=== PATIENT | male | born 1990 | race American Indian/Alaskan Native ===

== ENCOUNTER 2017-04-08 21:27 | Emergency (ER) | payer OTHER ==
[2017-04-09] MEDS ORDERED: TYLENOL PO ONE (03:07)
[2017-04-09] MEDS ORDERED: TYLENOL ONE (03:07)
[2017-04-09] MEDS ORDERED: BACTRIM DS PO ONE (06:02)
[2017-04-09] MEDS ORDERED: VALTREX PO ONE (06:09)
--- NOTE | 2017-04-09 06:18 | Emergency Department Report ---
Abscess Boil HPI - HPI Chief Complaint: Rectal Pain Stated Complaint: ANAL INFECTION Time Seen by Provider: 04/09/17 05:15 Duration: 1 Week Location: Perianal Severity: Mild History: Yes Pain, No Fever, No Purulent Drainage (Yellow drainage at home), No Numbness, No Foreign Body, No Previous History, No Insect Bite HPI: 26 y.o. male presents with painful bump inside rectum x 5 days. Mom put cream on it for 3 days with minimal improvement. States it drained yellow discharge a couple days ago but the pain remains 10/10. It is painful to walk or sit. Patient denies injury to area. He remember shaving buttocks a few days ago, which he does on a regular basis without complications. Home Medications: Previous Rx's Medication Instructions Recorded Last Taken Type Sulfamethoxazole/Trimethoprim 1 each PO BID 10 Days #20 tablet 04/09/17 Unknown Rx [Bactrim DS TAB] Valacyclovir HCl [Valtrex] 1,000 mg PO BID 10 Days #20 tablet 04/09/17 Unknown Rx traMADol [Ultram 50 MG tab] 50 mg PO Q6HR PRN #20 tablet 04/09/17 Unknown Rx Allergies/Adverse Reactions: Allergies Allergy/AdvReac Type Severity Reaction Status Date / Time No Known Allergies Allergy Verified 04/09/17 03:06 ED Review of Systems ROS: Stated complaint: ANAL INFECTION Other details as noted in HPI Constitutional: denies: chills, fever Respiratory: denies: cough, shortness of breath, wheezing Cardiovascular: denies: chest pain, palpitations Genitourinary: denies: urgency, dysuria Skin: as per HPI, other (painful bump to rectum) Neurological: denies: headache, weakness, paresthesias ED Past Medical Hx - Past Medical History Previous Medical History?: No - Surgical History Past Surgical History?: No - Social History Smoking Status: Current Some Day Smoker Substance Use Type: None - Medications Home Medications: Home Medications Medication Instructions Recorded Confirmed Last Taken Type Sulfamethoxazole/Trimethoprim 1 each PO BID 10 Days #20 tablet 04/09/17 Unknown Rx [Bactrim DS TAB] Valacyclovir HCl [Valtrex] 1,000 mg PO BID 10 Days #20 tablet 04/09/17 Unknown Rx traMADol [Ultram 50 MG tab] 50 mg PO Q6HR PRN #20 tablet 04/09/17 Unknown Rx ED Abscess Boil Physical Exam - Exam General: Vital signs noted. No distress. Alert and acting appropriately. Size: 1 cm Exam: Yes Tenderness, Yes Surrounding Cellulites/Erythema, Yes Normal Neurologic Exam, Yes Normal Circulation, No Fluctuance, No Lymphangitis, No Crepitation, No Heart Murmur Exam: 1 cm crusted blister, left of anus, painful to palpation, erythematous surrounding skin ED Course Vital Signs 04/08/17 04/09/17 21:57 04:19 Temperature 98.2 F 99.5 F Pulse Rate 119 H 107 H Respiratory 20 20 Rate Blood Pressure 138/78 124/72 O2 Sat by Pulse 97 99 Oximetry Critical care attestation.: If time is entered above; I have spent that time in minutes in the direct care of this critically ill patient, excluding procedure time. ED Disposition Clinical Impression: Abscess of anal or rectal region, Herpes exposure Disposition: TO HOME OR SELFCARE Is pt being admited?: No Does the pt Need Aspirin: No Condition: Stable Instructions: Genital Herpes Simplex (ED), Anorectal Abscess and Anal Fistula ( ED) Additional Instructions: Follow up with Primary Care Provider in 5-7 days. Return to ER if fever, discharge, and severe pain after 3 days of treatment. Call or come by ER in 3-5 days for lab results. Prescriptions: Sulfamethoxazole/Trimethoprim [Bactrim DS TAB] 1 each PO BID 10 Days #20 tablet traMADol [Ultram 50 MG tab] 50 mg PO Q6HR PRN #20 tablet PRN Reason: Pain Valacyclovir HCl [Valtrex] 1,000 mg PO BID 10 Days #20 tablet Referrals: PRIMARY CARE [Primary Care Provider] - 3-5 Days [facility] [Outside] - 3-5 Days [facility] [Outside] - 3-5 Days [facility] [Outside] - 3-5 Days Time of Disposition: 06:25 Print Language: SLOVENIAN
[2017-04-09] MEDS ORDERED: ULTRAM PO ONE (07:10)
[2017-04-09] MEDS ORDERED: ULTRAM ONE (07:12)
[2017-04-09 07:18] VITALS: BP 157/104
== END 2017-04-09 07:16 | disposition home or self-care (01) ==
LOC: ED 21:27
DX: K61.1 Rectal abscess (principal); F17.200 Nicotine dependence, unspecified, uncomplicated
CPT/HCPCS: 36415; 87076; 87116; 87186; 87255; 99282

== ENCOUNTER 2018-01-10 00:21 | Emergency (ER) | payer SELFPAY ==
[2018-01-10] MEDS ORDERED: NACL 0.9% 1000 ML 1,000 ML IV ONE (00:58)
[2018-01-10] MEDS ORDERED: TYLENOL PO ONE (00:59)
[2018-01-10] MEDS ORDERED: ZOFRAN ODT PO ONE (00:59)
[2018-01-10 01:50] LABS: Basophils # (Auto) 0.1 K/mm3 (0.0-0.1); Basophils % (Auto) 0.6 % (0.0-1.8); Eosinophils # (Auto) 0.5 K/mm3 (0.0-0.4); Eosinophils % (Auto) 4.1 % (0.0-4.3); Hematocrit 42.1 % (35.5-45.6); Hemoglobin 14.1 gm/dl (11.8-15.2); Lymphocytes # (Auto) 1.4 K/mm3 (1.2-5.4); Lymphocytes % (Auto) 11.7 % (13.4-35.0); Mean Corpuscular HGB Conc 34 % (32-34); Mean Corpuscular Hemoglobin 30 pg (28-32); Mean Corpuscular Volume 90 fl (84-94); Monocytes # (Auto) 0.5 K/mm3 (0.0-0.8); Monocytes % (Auto) 3.8 % (0.0-7.3); Platelet Count 260 K/mm3 (140-440); Red Blood Count 4.67 M/mm3 (3.65-5.03); Red Cell Distribution Width 13.8 % (13.2-15.2)
[2018-01-10 02:16] LABS: Alanine Aminotransferase 21 units/L (7-56); Albumin 4.6 g/dL (3.9-5); BUN/Creatinine Ratio 8; Blood Urea Nitrogen 8 mg/dL (9-20); Calcium 9.7 mg/dL (8.4-10.2); Hemolysis Index 56; Lipase 15 units/L (13-60)
[2018-01-10 03:57] LABS: Bilirubin,Urine NEG (Negative); Blood,Urine NEG (Negative); Color,Urine Yellow (Yellow); Mucus,Urine 1+ /HPF
[2018-01-10] MEDS ORDERED: MORPHINE IV ONE (04:24)
[2018-01-10] MEDS ORDERED: ZOFRAN IV ONE (04:24)
--- NOTE | 2018-01-10 05:46 | Cat Scan Report ---
FINAL REPORT EXAM: CT ABDOMEN PELVIS WO CON HISTORY: Right Flank Pain TECHNIQUE: Routine axial imaging was obtained of the abdomen and pelvis without oral or IV contrast. Sagittal and coronal reconstructions were reviewed. FINDINGS: The lung bases do not show infiltrates or effusions. There is a small hiatal hernia. The liver, gallbladder, biliary tree, pancreas, spleen, and adrenal glands appear normal. The kidneys reveal mild right-sided hydronephrosis secondary to a partially obstructing 2.6 mm stone in the right UVJ. There is a punctate nonobstructing calcification lower pole the right kidney. The abdominal aorta is normal in caliber. The bowel loops are normal in caliber and course. There is a small umbilical hernia containing omental fat. The appendix is not enlarged. In the pelvis there are few uncomplicated sigmoid diverticula. The prostate gland and bladder appear normal. The skeletal structures otherwise appear well maintained. IMPRESSION: Mild right-sided hydronephrosis secondary to a partially obstructing 2.6 mm stone in the distal right ureter. Nonobstructing punctate calcification lower pole right kidney. Normal appendix. Uncomplicated sigmoid diverticula.
[2018-01-10] MEDS ORDERED: TORADOL IV ONE (06:05)
[2018-01-10] MEDS ORDERED: TORADOL ONE (06:09)
[2018-01-10] MEDS ORDERED: NORCO 5/325 PO ONE (07:39)
--- NOTE | 2018-01-10 07:46 | Emergency Department Report ---
ED Abdominal Pain HPI - General Chief Complaint: Abdominal Pain Stated Complaint: N/V Time Seen by Provider: 01/10/18 07:00 Source: patient Mode of arrival: Ambulatory Limitations: No Limitations - History of Present Illness Initial Comments: 27-year-old male with no known past medical history presents to the hospital where complains of sudden onset of right-sided flank pain about 10 PM last night. Pain severe and rated 10/10 in intensity. Constant without aggravating or alleviating factors. Positive associated restlessness, nausea, and vomiting. Patient denies dysuria, fever, diarrhea, hematuria, or history of kidney stones. Patient received morphine, Toradol, Tylenol, and Zofran prior to my evaluation with significant improvement in symptoms. Severity scale (0 -10): 10 - Related Data Previous Rx's Medication Instructions Recorded Last Taken Type Sulfamethoxazole/Trimethoprim 1 each PO BID 10 Days #20 tablet 04/09/17 Unknown Rx [Bactrim DS TAB] Valacyclovir HCl [Valtrex] 1,000 mg PO BID 10 Days #20 tablet 04/09/17 Unknown Rx traMADol [Ultram 50 MG tab] 50 mg PO Q6HR PRN #20 tablet 04/09/17 Unknown Rx HYDROcodone/APAP 5-325 [[place] 1 each PO Q6HR PRN #20 tablet 01/10/18 Unknown Rx 5/325] Ibuprofen [Motrin] 800 mg PO Q8HR PRN #30 tablet 01/10/18 Unknown Rx Ondansetron [Zofran Odt] 4 mg PO Q8HR PRN #20 tab.rapdis 01/10/18 Unknown Rx Tamsulosin [Flomax] 0.4 mg PO QDAY #7 cap 01/10/18 Unknown Rx Allergies Allergy/AdvReac Type Severity Reaction Status Date / Time No Known Allergies Allergy Verified 04/09/17 03:06 ED Review of Systems ROS: Stated complaint: N/V Other details as noted in HPI Comment: All other systems reviewed and negative ED Past Medical Hx - Past Medical History Previous Medical History?: No - Surgical History Past Surgical History?: No - Social History Smoking Status: Never Smoker Substance Use Type: None - Medications Home Medications: Home Medications Medication Instructions Recorded Confirmed Last Taken Type Sulfamethoxazole/Trimethoprim 1 each PO BID 10 Days #20 tablet 04/09/17 Unknown Rx [Bactrim DS TAB] Valacyclovir HCl [Valtrex] 1,000 mg PO BID 10 Days #20 tablet 04/09/17 Unknown Rx traMADol [Ultram 50 MG tab] 50 mg PO Q6HR PRN #20 tablet 04/09/17 Unknown Rx HYDROcodone/APAP 5-325 [[place] 1 each PO Q6HR PRN #20 tablet 01/10/18 Unknown Rx 5/325] Ibuprofen [Motrin] 800 mg PO Q8HR PRN #30 tablet 01/10/18 Unknown Rx Ondansetron [Zofran Odt] 4 mg PO Q8HR PRN #20 tab.rapdis 01/10/18 Unknown Rx Tamsulosin [Flomax] 0.4 mg PO QDAY #7 cap 01/10/18 Unknown Rx ED Physical Exam - General Limitations: No Limitations - Other Other exam information: General: No limitations, patient is alert in no acute distress Head exam: Atraumatic, normocephalic Eyes exam: Normal appearance, nonicteric sclera ENT: Moist mucous membrane Neck exam: Normal inspection, full range of motion, no meningismus nontender Respiratory exam: Clear to auscultation bilateral, no wheezes, rales, crackles Cardiovascular: Normal rate and rhythm, normal heart sounds Abdomen: Soft, nondistended, and nontender, with normal bowel sounds, no rebound, or guarding Extremity: Full range of motion normal inspection no deformity Back: Normal Inspection, full range of motion, no tenderness Neurologic: Alert, oriented x3, cranial nerves intact, no motor or sensory deficit Psychiatric: normal affect, normal mood Skin: Warm, dry, intact ED Course Vital Signs 01/10/18 01/10/18 01/10/18 00:30 00:56 02:03 Temperature 98.3 F 98.3 F Pulse Rate 104 H 98 H Respiratory 18 18 16 Rate Blood Pressure 136/63 136/63 Blood Pressure [Left] O2 Sat by Pulse 98 99 Oximetry 01/10/18 01/10/18 01/10/18 03:13 04:33 05:03 Temperature 98.7 F Pulse Rate 81 Respiratory 18 18 18 Rate Blood Pressure Blood Pressure 141/86 [Left] O2 Sat by Pulse 99 Oximetry 01/10/18 01/10/18 01/10/18 05:35 06:00 06:32 Temperature Pulse Rate 86 87 Respiratory 18 18 18 Rate Blood Pressure Blood Pressure 127/97 128/57 [Left] O2 Sat by Pulse 100 100 Oximetry - Reevaluation(s) Reevaluation #1: 01/10/18 07:40 [place] provided prior to discharge for extended pain relief ED Medical Decision Making - Lab Data Result diagrams: 01/10/18 01:37 01/10/18 01:37 Lab Results 01/10/18 01/10/18 01/10/18 Range/Units 01:37 01:37 03:43 WBC 12.2 H (4.5-11.0) K/mm3 RBC 4.67 (3.65-5.03) M/mm3 Hgb 14.1 (11.8-15.2) gm/dl Hct 42.1 (35.5-45.6) % MCV 90 (84-94) fl MCH 30 (28-32) pg MCHC 34 (32-34) % RDW 13.8 (13.2-15.2) % Plt Count 260 (140-440) K/mm3 Lymph % (Auto) 11.7 L (13.4-35.0) % [place] % (Auto) 3.8 (0.0-7.3) % Eos % (Auto) 4.1 (0.0-4.3) % Baso % (Auto) 0.6 (0.0-1.8) % Lymph # 1.4 (1.2-5.4) K/mm3 [place] # 0.5 (0.0-0.8) K/mm3 Eos # 0.5 H (0.0-0.4) K/mm3 Baso # 0.1 (0.0-0.1) K/mm3 Seg Neutrophils % 79.8 H (40.0-70.0) % Seg Neutrophils # 9.8 H (1.8-7.7) K/mm3 Sodium 140 (137-145) mmol/L Potassium 4.0 (3.6-5.0) mmol/L Chloride 100.9 (98-107) mmol/L Carbon Dioxide 27 (22-30) mmol/L Anion Gap 16 mmol/L BUN 8 L (9-20) mg/dL Creatinine 1.0 (0.8-1.5) mg/dL Estimated GFR > 60 ml/min BUN/Creatinine Ratio 8 % Glucose 138 H (75-100) mg/dL Calcium 9.7 (8.4-10.2) mg/dL Total Bilirubin 0.50 (0.1-1.2) mg/dL AST 25 (5-40) units/L ALT 21 (7-56) units/L Alkaline Phosphatase 102 (35-129) units/L Total Protein 8.2 (6.3-8.2) g/dL Albumin 4.6 (3.9-5) g/dL Albumin/Globulin Ratio 1.3 % Lipase 15 (13-60) units/L Urine Color Yellow (Yellow) Urine Turbidity Clear (Clear) Urine pH 8.0 H (5.0-7.0) Ur Specific Orange 1.025 (1.003-1.030) Urine Protein 100 mg/dl (Negative) mg/dL Urine Glucose (UA) Neg (Negative) mg/dL Urine Ketones Neg (Negative) mg/dL Urine Blood Neg (Negative) Urine Nitrite Neg (Negative) Urine Bilirubin Neg (Negative) Urine Urobilinogen 2.0 (<2.0) mg/dL Ur Leukocyte Esterase Neg (Negative) Urine WBC (Auto) 1.0 (0.0-6.0) /HPF Urine RBC (Auto) 12.0 (0.0-6.0) /HPF Urine Mucus 1+ /HPF - Radiology Data Radiology results: report reviewed FINAL REPORT EXAM: CT ABDOMEN PELVIS WO CON HISTORY: Right Flank Pain TECHNIQUE : Routine axial imaging was obtained of the abdomen and pelvis without oral or IV contrast. Sagittal and coronal reconstructions were reviewed. FINDINGS: The lung bases do not show infiltrates or effusions. There is a small hiatal hernia. The liver, gallbladder, biliary tree, pancreas, spleen, and adrenal glands appear normal. The kidneys reveal mild right-sided hydronephrosis secondary to a partially obstructing 2.6 mm stone in the right UVJ. There is a punctate nonobstructing calcification lower pole the right kidney. The abdominal aorta is normal in caliber. The bowel loops are normal in caliber and course. There is a small umbilical hernia containing omental fat. The appendix is not enlarged. In the pelvis there are few uncomplicated sigmoid diverticula. The prostate gland and bladder appear normal. The skeletal structures otherwise appear well maintained. IMPRESSION: Mild right-sided hydronephrosis secondary to a partially obstructing 2.6 mm stone in the distal right ureter. Nonobstructing punctate calcification lower pole right kidney. Normal appendix. Uncomplicated sigmoid diverticula. - Medical Decision Making Patient presenting with right colic found by CT. Stone is less than 5 mm so should pass spontaneously. No signs of infection or renal failure. Pain improve ED treatment. Will be discharged home with urology follow-up and meds. - Differential Diagnosis renal colic, UTI, appendicitis, torsion, hernia Critical Care Time: No Critical care attestation.: If time is entered above; I have spent that time in minutes in the direct care of this critically ill patient, excluding procedure time. ED Disposition Clinical Impression: Renal colic on right side Disposition: DC- TO HOME OR SELFCARE Is pt being admited?: No Does the pt Need Aspirin: No Condition: Stable Instructions: Renal Colic (ED), Kidney Stones (ED) Additional Instructions: Take the medication as prescribed. Follow up with the urologist. Return if symptoms worsen as indicated by your discharge instructions Prescriptions: HYDROcodone/APAP 5-325 [[place] 5/325] 1 each PO Q6HR PRN #20 tablet PRN Reason: Pain Ibuprofen [Motrin] 800 mg PO Q8HR PRN #30 tablet PRN Reason: Pain, Moderate (4-6) Ondansetron [Zofran Odt] 4 mg PO Q8HR PRN #20 tab.rapdis PRN Reason: Nausea And Vomiting Tamsulosin [Flomax] 0.4 mg PO QDAY #7 cap Referrals: DELL DUMONT MD [Staff Physician] - 3-5 Days (Urologist) Time of Disposition: 07:47
[2018-01-10 08:09] VITALS: BP 104/70
== END 2018-01-10 08:09 | disposition home or self-care (01) ==
LOC: ED 00:21
DX: N20.0 Calculus of kidney (principal)
CPT/HCPCS: 36415; 74176; 80053; 81001; 83690; 85025; 96374; 96375; 99284; J1885; J2270; J2405; Q0162

== ENCOUNTER 2019-01-14 11:40 | Inpatient (IN) | payer SELFPAY ==
--- NOTE | 2019-01-14 11:44 | Emergency Department Report ---
Blank Doc - Documentation Documentation: 28-year-old male that presents with rectal pain with hx of hemorrhoids. This initial assessment/diagnostic orders/clinical plan/treatment(s) is/are subject to change based on patient's health status, clinical progression and re- assessment by fellow clinical providers in the ED. Further treatment and workup at subsequent clinical providers discretion. Patient/guardians urged not to elope from the ED as their condition may be serious if not clinically assessed and managed. Initial orders include: 1- Patient sent to [facility] for further evaluation and treatment
[2019-01-14] MEDS ORDERED: SODIUM CHLORIDE 0.9% 1000 ML 1,000 ML IV ONE (12:36)
[2019-01-14] MEDS ORDERED: MORPHINE 4 MG/1 ML INJ IV ONE (12:36)
[2019-01-14] MEDS ORDERED: ONDANSETRON 4 MG/2 ML INJ IV ONE (12:36)
[2019-01-14 13:31] LABS: Alanine Aminotransferase 18 units/L (7-56); Albumin 4.2 g/dL (3.9-5); BUN/Creatinine Ratio 9; Blood Urea Nitrogen 7 mg/dL (9-20); Calcium 9.3 mg/dL (8.4-10.2); Hemolysis Index 3
[2019-01-14 14:13] LABS: Basophils # (Auto) 0.1 K/mm3 (0.0-0.1); Basophils % (Auto) 0.4 % (0.0-1.8); Eosinophils # (Auto) 0.1 K/mm3 (0.0-0.4); Eosinophils % (Auto) 0.8 % (0.0-4.3); Hematocrit 41.2 % (35.5-45.6); Lymphocytes # (Auto) 1.7 K/mm3 (1.2-5.4); Lymphocytes % (Auto) 13.8 % (13.4-35.0); Mean Corpuscular HGB Conc 34 % (32-34); Mean Corpuscular Volume 92 fl (84-94); Monocytes % (Auto) 7.6 % (0.0-7.3); Platelet Count 308 K/mm3 (140-440); Red Blood Count 4.46 M/mm3 (3.65-5.03)
[2019-01-14 14:25] LABS: INR 1.25 (0.87-1.13)
[2019-01-14] MEDS ORDERED: PIPERACIL/TAZOBACTA 4.5/NS 100 4.5 GM/100 ML VIAL IV ONE (14:50)
[2019-01-14] MEDS ORDERED: metroNIDAZOLE/NS 500 MG/100 ML 500 MG/100 ML BAG IV ONE (14:50)
--- NOTE | 2019-01-14 15:29 | Cat Scan Report ---
CT ABDOMEN AND PELVIS WITH CONTRAST INDICATION: Abdominal Pain. TECHNIQUE: Axial CT images were obtained through the abdomen and pelvis after 100 cc Omnipaque [address] scans at this location are performed using CT dose reduction for ALARA by means of automated exposure control. COMPARISON: CT abdomen pelvis 01/10/2018 FINDINGS: LOWER CHEST: No significant abnormality. LIVER: No significant abnormality. GALLBLADDER: No significant abnormality. BILE DUCTS: No significant abnormality. PANCREAS: No significant abnormality. SPLEEN: No significant abnormality. ADRENALS: No significant abnormality. RIGHT KIDNEY and URETER: No significant abnormality. LEFT KIDNEY and URETER: No significant abnormality. STOMACH and SMALL BOWEL: No significant abnormality. COLON: No significant abnormality. APPENDIX: Normal. PERITONEUM: No free fluid. No free air. No fluid collection. LYMPH NODES: No significant adenopathy. AORTA and ARTERIES: No significant abnormality. IVC and VEINS: No significant abnormality. URINARY BLADDER: No significant abnormality. REPRODUCTIVE ORGANS: No significant abnormality. ADDITIONAL FINDINGS: None. SKELETAL SYSTEM: No significant abnormality. IMPRESSION: 1. No significant abnormality. Signer Name: Ru Toro MD Signed: 01/14/2019 3:25 PM Workstation Name: [id number]
--- NOTE | 2019-01-14 15:56 | Emergency Department Report ---
ED Abdominal Pain HPI - General Chief Complaint: Rectal Pain Stated Complaint: HEMORROIDS Time Seen by Provider: 01/14/19 11:43 Source: patient Mode of arrival: Ambulatory Limitations: No Limitations - History of Present Illness Initial Comments: Patient complained of rectal pain which has been ongoing for the past 2 days. He denies any trauma to the rectum. MD Complaint: other (Rectal pain) -: Sudden, days(s) (2) Radiation: none Migration to: no migration Severity: moderate Severity scale (0 -10): 4 Quality: sharp Consistency: constant Improves With: nothing Worsens With: nothing Associated Symptoms: denies other symptoms - Related Data Previous Rx's Medication Instructions Recorded Last Taken Type Sulfamethoxazole/Trimethoprim 1 each PO BID 10 Days #20 tablet 04/09/17 Unknown Rx [Bactrim DS TAB] Valacyclovir HCl [Valtrex] 1,000 mg PO BID 10 Days #20 tablet 04/09/17 Unknown Rx traMADol [Ultram 50 MG tab] 50 mg PO Q6HR PRN #20 tablet 04/09/17 Unknown Rx HYDROcodone/APAP 5-325 [[place] 1 each PO Q6HR PRN #20 tablet 01/10/18 Unknown Rx 5/325] Ibuprofen [Motrin] 800 mg PO Q8HR PRN #30 tablet 01/10/18 Unknown Rx Ondansetron [Zofran Odt] 4 mg PO Q8HR PRN #20 tab.rapdis 01/10/18 Unknown Rx Tamsulosin [Flomax] 0.4 mg PO QDAY #7 cap 01/10/18 Unknown Rx Allergies Allergy/AdvReac Type Severity Reaction Status Date / Time No Known Allergies Allergy Verified 04/09/17 03:06 ED Review of Systems ROS: Stated complaint: HEMORROIDS Other details as noted in HPI Comment: All other systems reviewed and negative Constitutional: denies: chills, fever Eyes: denies: eye pain, eye discharge, vision change ENT: denies: ear pain, throat pain Respiratory: denies: cough, shortness of breath, wheezing Cardiovascular: denies: chest pain, palpitations Endocrine: no symptoms reported Gastrointestinal: other (Rectal pain). denies: abdominal pain, nausea, diarrhea Genitourinary: denies: urgency, dysuria Musculoskeletal: denies: back pain, joint swelling, arthralgia Skin: denies: rash, lesions Neurological: denies: headache, weakness, paresthesias Psychiatric: denies: anxiety, depression Hematological/Lymphatic: denies: easy bleeding, easy bruising ED Past Medical Hx - Past Medical History Additional medical history: hemorrhoids - Surgical History Past Surgical History?: No - Social History Smoking Status: Current Every Day Smoker Substance Use Type: Marijuana - Medications Home Medications: Home Medications Medication Instructions Recorded Confirmed Last Taken Type Sulfamethoxazole/Trimethoprim 1 each PO BID 10 Days #20 tablet 04/09/17 Unknown Rx [Bactrim DS TAB] Valacyclovir HCl [Valtrex] 1,000 mg PO BID 10 Days #20 tablet 04/09/17 Unknown Rx traMADol [Ultram 50 MG tab] 50 mg PO Q6HR PRN #20 tablet 04/09/17 Unknown Rx HYDROcodone/APAP 5-325 [[place] 1 each PO Q6HR PRN #20 tablet 01/10/18 Unknown Rx 5/325] Ibuprofen [Motrin] 800 mg PO Q8HR PRN #30 tablet 01/10/18 Unknown Rx Ondansetron [Zofran Odt] 4 mg PO Q8HR PRN #20 tab.rapdis 01/10/18 Unknown Rx Tamsulosin [Flomax] 0.4 mg PO QDAY #7 cap 01/10/18 Unknown Rx ED Physical Exam - General Limitations: No Limitations General appearance: alert, in no apparent distress - Head Head exam: Present: atraumatic, normocephalic - Eye Eye exam: Present: normal appearance, PERRL Pupils: Present: normal accommodation - ENT ENT exam: Present: normal exam, normal orophraynx, mucous membranes moist - Neck Neck exam: Present: normal inspection, full ROM. Absent: tenderness - Respiratory Respiratory exam: Present: normal lung sounds bilaterally. Absent: respiratory distress, wheezes - Cardiovascular Cardiovascular Exam: Present: regular rate, normal rhythm. Absent: systolic murmur, diastolic murmur, rubs, gallop - GI/Abdominal GI/Abdominal exam: Present: soft, normal bowel sounds. Absent: distended, tenderness, guarding, rebound - Rectal Rectal exam: Present: mass, tenderness, other (There is a fluctuant mass which is tender to palpation on the left perianal area. Conveyor Installer was Ms. Yanick RN.) - exam: Present: other (Deferred) - Extremities Exam Extremities exam: Present: normal inspection - Back Exam Back exam: Present: normal inspection - Neurological Exam Neurological exam: Present: alert, oriented X3, CN II-XII intact - Psychiatric Psychiatric exam: Present: normal affect, normal mood - Skin Skin exam: Present: warm, dry, intact, normal color. Absent: rash ED Course Vital Signs 01/14/19 11:46 Temperature 98.6 F Pulse Rate 97 H Respiratory 18 Rate Blood Pressure 130/76 O2 Sat by Pulse 99 Oximetry - Consultations Consultation #1: 01/14/19 17:34 I called and spoke with Dr. Obdulio Appiah the general surgeon laborer prestressed concrete. He recommended admitting the patient to the hospitalist, patient to be placed nothing by mouth after midnight for surgery tomorrow morning. Consultation #2: 01/14/19 17:36 Patient will be admitted by the hospitalist Dr. Mcghee for further evaluation and management. ED Medical Decision Making - Lab Data Result diagrams: 01/14/19 12:48 01/14/19 12:48 Lab Results 01/14/19 01/14/19 01/14/19 Range/Units 12:48 12:48 12:48 WBC 12.6 H (4.5-11.0) K/mm3 RBC 4.46 (3.65-5.03) M/mm3 Hgb 14.0 (11.8-15.2) gm/dl Hct 41.2 (35.5-45.6) % MCV 92 (84-94) fl MCH 31 (28-32) pg MCHC 34 (32-34) % RDW 14.0 (13.2-15.2) % Plt Count 308 (140-440) K/mm3 Lymph % (Auto) 13.8 (13.4-35.0) % [place] % (Auto) 7.6 H (0.0-7.3) % Eos % (Auto) 0.8 (0.0-4.3) % Baso % (Auto) 0.4 (0.0-1.8) % Lymph # 1.7 (1.2-5.4) K/mm3 [place] # 1.0 H (0.0-0.8) K/mm3 Eos # 0.1 (0.0-0.4) K/mm3 Baso # 0.1 (0.0-0.1) K/mm3 Seg Neutrophils % 77.4 H (40.0-70.0) % Seg Neutrophils # 9.8 H (1.8-7.7) K/mm3 PT 15.4 H (12.2-14.9) Sec. INR 1.25 H (0.87-1.13) APTT 33.0 (24.2-36.6) Sec. Sodium (137-145) mmol/L Potassium (3.6-5.0) mmol/L Chloride (98-107) mmol/L Carbon Dioxide (22-30) mmol/L Anion Gap mmol/L BUN (9-20) mg/dL Creatinine (0.8-1.5) mg/dL Estimated GFR ml/min BUN/Creatinine Ratio % Glucose (75-100) mg/dL Calcium (8.4-10.2) mg/dL Total Bilirubin (0.1-1.2) mg/dL AST (5-40) units/L ALT (7-56) units/L Alkaline Phosphatase (35-129) units/L Total Protein (6.3-8.2) g/dL Albumin (3.9-5) g/dL Albumin/Globulin Ratio % Lipase 9 L (13-60) units/L 01/14/19 Range/Units 12:48 WBC (4.5-11.0) K/mm3 RBC (3.65-5.03) M/mm3 Hgb (11.8-15.2) gm/dl Hct (35.5-45.6) % MCV (84-94) fl MCH (28-32) pg MCHC (32-34) % RDW (13.2-15.2) % Plt Count (140-440) K/mm3 Lymph % (Auto) (13.4-35.0) % [place] % (Auto) (0.0-7.3) % Eos % (Auto) (0.0-4.3) % Baso % (Auto) (0.0-1.8) % Lymph # (1.2-5.4) K/mm3 [place] # (0.0-0.8) K/mm3 Eos # (0.0-0.4) K/mm3 Baso # (0.0-0.1) K/mm3 Seg Neutrophils % (40.0-70.0) % Seg Neutrophils # (1.8-7.7) K/mm3 PT (12.2-14.9) Sec. INR (0.87-1.13) APTT (24.2-36.6) Sec. Sodium 136 L (137-145) mmol/L Potassium 3.4 L (3.6-5.0) mmol/L Chloride 95.6 L (98-107) mmol/L Carbon Dioxide 27 (22-30) mmol/L Anion Gap 17 mmol/L BUN 7 L (9-20) mg/dL Creatinine 0.8 (0.8-1.5) mg/dL Estimated GFR > 60 ml/min BUN/Creatinine Ratio 9 % Glucose 111 H (75-100) mg/dL Calcium 9.3 (8.4-10.2) mg/dL Total Bilirubin 0.50 (0.1-1.2) mg/dL AST 21 (5-40) units/L ALT 18 (7-56) units/L Alkaline Phosphatase 94 (35-129) units/L Total Protein 8.7 H (6.3-8.2) g/dL Albumin 4.2 (3.9-5) g/dL Albumin/Globulin Ratio 0.9 % Lipase (13-60) units/L - Radiology Data Radiology results: report reviewed There is a 3cm left perirectal abscess. - Medical Decision Making Left perirectal abscess. Patient's to undergo surgery tomorrow morning by the general surgeon on-call Dr. Obdulio You. Critical care attestation.: If time is entered above; I have spent that time in minutes in the direct care of this critically ill patient, excluding procedure time. ED Disposition Clinical Impression: Perirectal abscess, Perirectal cellulitis Disposition: OP ADMIT IP TO THIS HOSP Is pt being admited?: Yes Does the pt Need Aspirin: No Condition: Stable Referrals: PRIMARY CARE, [Primary Care Provider] - 3-5 Days
[2019-01-14 17:26] LABS: Bilirubin,Urine NEG (Negative); Blood,Urine NEG (Negative); Color,Urine Yellow (Yellow); Mucus,Urine 1+ /HPF; Protein,Urine <15 mg/dL mg/dL (Negative)
[2019-01-14] MEDS ORDERED: ALBUTEROL 2.5 MG/3 ML NEBU IH PRN (17:31)
[2019-01-14] MEDS ORDERED: ACETAMINOPHEN 325 MG TAB PO PRN (17:31)
--- NOTE | 2019-01-14 17:34 | History and Physical Report ---
History of Present Illness Chief complaint: My butt is real sore History of present illness: 28 YO Male with Nicotine Dependence, Hemorrhoids presents to ED for evaluation. Pt states that he has experienced pain and tenderness to his left buttock over the past 2 days with progressively worsening symptoms over the same time frame. Pt states that the pain is 4/10, constant, localized to his left buttock, worsened with sitting. Pt acknowledges redness and tenderness to the same area. Pt transported to [facility] via private vehicle. Pt seen and evaluated in ED and found to have left buttock cellulitis complicated by abscess. Surgery team consulted in ED. Pt initiated on IV antibiotic therapy. Pt denies fever, chills, CP, Palpitations, NVD, HIV risk factors, trauma, or recent ill contacts. No prior admission for review. All listed mediation reconciled at time of admission. Past History Past Medical History: other (hemorrhoids) Past Surgical History: No surgical history, Other (reviewed) Social history: single, smoking. denies: alcohol abuse, prescription drug abuse, IV drug use Family history: no significant family history (reviewed) Medications and Allergies Allergies Allergy/AdvReac Type Severity Reaction Status Date / Time No Known Allergies Allergy Verified 04/09/17 03:06 Home Medications Medication Instructions Recorded Confirmed Last Taken Type Sulfamethoxazole/Trimethoprim 1 each PO BID 10 Days #20 tablet 04/09/17 Unknown Rx [Bactrim DS TAB] Valacyclovir HCl [Valtrex] 1,000 mg PO BID 10 Days #20 tablet 04/09/17 Unknown Rx traMADol [Ultram 50 MG tab] 50 mg PO Q6HR PRN #20 tablet 04/09/17 Unknown Rx HYDROcodone/APAP 5-325 [[place] 1 each PO Q6HR PRN #20 tablet 01/10/18 Unknown Rx 5/325] Ibuprofen [Motrin] 800 mg PO Q8HR PRN #30 tablet 01/10/18 Unknown Rx Ondansetron [Zofran Odt] 4 mg PO Q8HR PRN #20 tab.rapdis 01/10/18 Unknown Rx Tamsulosin [Flomax] 0.4 mg PO QDAY #7 cap 01/10/18 Unknown Rx Active Meds: Active Medications Acetaminophen (Tylenol) 650 mg PO Q4H PRN PRN Reason: Pain MILD(1-3)/Fever >100.5/[place] Review of Systems Constitutional: no weight loss, no weight gain, no fever, no chills, no sweats Ears, nose, mouth and throat: no ear pain, no ear discharge, no tinnitis, no decreased hearing, no nose pain, no nasal congestion Cardiovascular: no chest pain, no orthopnea, no palpitations, no edema, no syncope Gastrointestinal: no abdominal pain, no nausea, no vomiting, no diarrhea, no constipation, no change in bowel habits Genitourinary Male: no hematuria, no flank pain, no discharge, no nocturia, no incontinence Rectal: pain, hemorrhoids, other (erythema) Musculoskeletal: no neck stiffness, no neck pain, no shooting arm pain, no arm numbness/tingling, no low back pain, no shooting leg pain, no leg numbness/tingling Integumentary: no rash, no pruritis, no sores, no wounds, no jaundice Neurological: no transient paralysis, no paralysis, no parathesias, no numbness, no tingling, no seizures, no syncope, no tremors Psychiatric: no anxiety, no memory loss, no change in sleep habits, no insomnia, no change in appetite, no change in libido, no suicidal ideation, no disorientation Endocrine: no cold intolerance, no heat intolerance, no polyphagia, no polydipsia, no polyuria Hematologic/Lymphatic: no easy bruising, no easy bleeding, no lymphadenopathy, no lymphedema Allergic/Immunologic: no urticaria, no allergic rhinitis, no persistent infections, no anaphylaxis Exam - Constitutional Vitals: Temp Pulse Resp BP Pulse Ox 98.6 F 97 H 18 130/76 99 01/14/19 11:46 01/14/19 11:46 01/14/19 11:46 01/14/19 11:46 01/14/19 11:46 General appearance: Present: mild distress - EENT Eyes: Present: PERRL ENT: hearing intact, clear oral mucosa - Neck Neck: Present: supple, normal ROM - Respiratory Respiratory effort: normal Respiratory: bilateral: CTA - Cardiovascular Heart Sounds: Present: S1 & S2. Absent: rub, click - Extremities Extremities: pulses symmetrical, No edema Peripheral Pulses: within normal limits - Abdominal General gastrointestinal: Present: soft, non-tender, non-distended, normal bowel sounds Male genitourinary: Present: normal - Rectal Rectal Exam: tenderness, other (erythema, ) - Integumentary Integumentary: Present: clear, warm, dry - Musculoskeletal Musculoskeletal: gait normal, strength equal bilaterally - Psychiatric Psychiatric: appropriate mood/affect, intact judgment & insight - Neurologic Neurologic: CNII-XII intact, moves all extremities Results - Labs CBC & Chem 7: 01/14/19 12:48 01/14/19 12:48 Labs: Abnormal lab results 01/14/19 01/14/19 01/14/19 Range/Units 12:48 12:48 12:48 WBC 12.6 H (4.5-11.0) K/mm3 [place] % (Auto) 7.6 H (0.0-7.3) % [place] # 1.0 H (0.0-0.8) K/mm3 Seg Neutrophils % 77.4 H (40.0-70.0) % Seg Neutrophils # 9.8 H (1.8-7.7) K/mm3 PT 15.4 H (12.2-14.9) Sec. INR 1.25 H (0.87-1.13) Sodium (137-145) mmol/L Potassium (3.6-5.0) mmol/L Chloride (98-107) mmol/L BUN (9-20) mg/dL Glucose (75-100) mg/dL Total Protein (6.3-8.2) g/dL Lipase 9 L (13-60) units/L Ur Specific [place] (1.003-1.030) 01/14/19 01/14/19 Range/Units 12:48 16:52 WBC (4.5-11.0) K/mm3 [place] % (Auto) (0.0-7.3) % [place] # (0.0-0.8) K/mm3 Seg Neutrophils % (40.0-70.0) % Seg Neutrophils # (1.8-7.7) K/mm3 PT (12.2-14.9) Sec. INR (0.87-1.13) Sodium 136 L (137-145) mmol/L Potassium 3.4 L (3.6-5.0) mmol/L Chloride 95.6 L (98-107) mmol/L BUN 7 L (9-20) mg/dL Glucose 111 H (75-100) mg/dL Total Protein 8.7 H (6.3-8.2) g/dL Lipase (13-60) units/L Ur Specific [place] > 1.059 H (1.003-1.030) Assessment and Plan - Patient Problems (1) Perirectal abscess Current Visit: Yes Status: Acute Plan to address problem: Surgery team consulted in ED, pain control, CT Pelvis, serial physical exam, (2) Nicotine dependence Current Visit: Yes Status: Acute Qualifiers: Nicotine product type: cigarettes Substance use status: in withdrawal Qualified Code(s): F17.213 - Nicotine dependence, cigarettes, with withdrawal Plan to address problem: smoking cessation counseling, +15min, supportive care. (3) Perirectal cellulitis Current Visit: Yes Status: Acute Plan to address problem: IV antibiotic therapy, supportive care. pain control, CBC, CMP (4) DVT prophylaxis Current Visit: Yes Status: Acute Plan to address problem: SCD to BLE while in bed, Pt ambulatory
[2019-01-14] MEDS ORDERED: VANCOMYCIN/NS 1 GM/250 ML 1 GM/250 ML BAG IV ONE (17:36)
[2019-01-14] MEDS ORDERED: oxyCODONE /ACETAMINOPHEN 5-325MG TAB PO PRN (18:08)
[2019-01-14] MEDS ORDERED: VANCOMYCIN PHARMACY TO DOSE IV SCH (19:00)
[2019-01-14] MEDS ORDERED: VANCOMYCIN 750 MG in SODIUM CHLORIDE 0.9% 250ML 250 ML IV ONE (20:00)
[2019-01-14] MEDS ORDERED: HYDROcodone/ACETAMINOPHEN 5-325 MG TAB ONE (20:14)
[2019-01-14] MEDS: HYDROcodone/ACETAMINOPHEN 5-325 MG TAB PO PRN (20:19)
[2019-01-15] MEDS: MORPHINE 2 MG/1 ML INJ IV PRN ×2 (00:11→03:58)
[2019-01-15] MEDS ORDERED: MORPHINE 2 MG/1 ML INJ ONE (00:14)
[2019-01-15] MEDS: ONDANSETRON 4 MG/2 ML INJ IV PRN ×2 (01:40→13:11)
[2019-01-15] MEDS: VANCOMYCIN 1,500 MG in SODIUM CHLORIDE 0.9% 500 ML 500 ML IV SCH ×2 (06:59→21:59)
[2019-01-15] MEDS ORDERED: ONDANSETRON 4 MG/2 ML INJ IV PRN ×2 (07:53→18:20)
[2019-01-15] MEDS ORDERED: HYDROmorphone 1 MG/1 ML INJ IV PRN (07:53)
[2019-01-15] MEDS ORDERED: fentaNYL 100 MCG/2 ML INJ IV PRN (07:53)
--- NOTE | 2019-01-15 07:58 | Anesthesia Day of Surgery ---
Anesthesia Day of Surgery - Day of Surgery Patient Examined: Yes Patient H&P Reviewed: Yes Patient is NPO: Yes
--- NOTE | 2019-01-15 07:59 | Anesthesia Consultation ---
Anesthesia Consult and Med Hx Date of service: 01/15/19 - Airway Anesthetic Teeth Evaluation: Good ROM Head & Neck: Adequate Mental/Hyoid Distance: Adequate Mallampati Class: Class I Intubation Access Assessment: Good - Pre-Operative Health Status ASA Pre-Surgery Classification: ASA2 Proposed Anesthetic Plan: General - Pulmonary Hx Asthma: No Hx Pneumonia: No - Central Nervous System Hx Psychiatric Problems: No - Endocrine Hx End Stage Renal Disease: No - Other Systems Hx Substance Use: Yes (MJ)
[2019-01-15] MEDS ORDERED: ACETAMINOPHEN 325 MG TAB PO NR (08:00)
[2019-01-15] MEDS ORDERED: MIDAZOLAM 2 MG/2 ML INJ IV NR (08:00)
[2019-01-15] MEDS ORDERED: GABAPENTIN 300 MG CAP PO NR (08:00)
[2019-01-15] MEDS ORDERED: MORPHINE 2 MG/1 ML INJ IV NR (08:00)
[2019-01-15] MEDS ORDERED: CELECOXIB 200 MG CAP PO NR (08:00)
[2019-01-15] MEDS: LACTATED RINGERS 1,000 ML IV SCH ×2 (08:15→11:24)
[2019-01-15] MEDS ORDERED: SUCCINYLCHOLINE CHLORIDE 200 MG/10 ML INJ MDV ONE (08:37)
[2019-01-15] MEDS ORDERED: ROCURONIUM 50 MG/5 ML INJ IV ONE (08:37)
[2019-01-15] MEDS ORDERED: LIDOCAINE MPF (2%) 20 MG/1 ML VIAL 5 ML ONE (08:37)
[2019-01-15] MEDS ORDERED: PROPOFOL 200 MG/20 ML VIAL IV ONE (08:37)
[2019-01-15] MEDS ORDERED: HYDROGEN PEROXIDE 118 ML SOLUTION ONE (08:38)
[2019-01-15] MEDS ORDERED: METHYLENE BLUE 50 MG/10 ML AMP ONE (08:39)
[2019-01-15] MEDS ORDERED: BUPIVACAINE/PF (0.5%) 5 MG/1 ML 30 ML VIAL INFILTRATI ONE (08:39)
[2019-01-15] MEDS ORDERED: BUPIVACAINE-EPINEPHRINE/PF 0.5%-1:200,000 (30 ML) VIAL INFILTRATI ONE ×2 (08:39→09:56)
--- NOTE | 2019-01-15 08:56 | Progress Note ---
Assessment and Plan Assessment and plan: 28 YO Male with Nicotine Dependence, Hemorrhoids presents to ED for evaluation. Pt states that he has experienced pain and tenderness to his left buttock over the past 2 days with progressively worsening symptoms over the same time frame. Pt states that the pain is 4/10, constant, localized to his left buttock, worsened with sitting. Pt acknowledges redness and tenderness to the same area. Pt transported to [facility] via private vehicle. Pt seen and evaluated in ED and found to have left buttock cellulitis complicated by abscess. Surgery team consulted in ED. Pt initiated on IV antibiotic therapy. Pt denies fever, chills, CP, Palpitations, NVD, HIV risk factors, trauma, or recent ill contacts. No prior admission for review. All listed mediation reconciled at time of admission. - Patient Problems (1) Perirectal abscess Current Visit: Yes Status: Acute Plan to address problem: pain control, CT Pelvis, serial physical exam, S/P Mayuri-rectal abscess drainage, Follow cultures Continue abx at this time (2) Nicotine dependence Current Visit: Yes Status: Acute Qualifiers: Nicotine product type: cigarettes Substance use status: in withdrawal Qualified Code(s): F17.213 - Nicotine dependence, cigarettes, with withdrawal Plan to address problem: smoking cessation counseling, +15min, supportive care. (3) Perirectal cellulitis Current Visit: Yes Status: Acute Plan to address problem: IV antibiotic therapy, supportive care. pain control, CBC, CMP (4) DVT prophylaxis Current Visit: Yes Status: Acute Plan to address problem: SCD to BLE while in bed, Pt ambulatory History Interval history: Patient seen and examined, reports improvement in symptoms following Surgery, had a episode of vomiting this morning Hospitalist Physical - Constitutional Vitals: Temp Pulse Resp BP Pulse Ox 99.1 F 100 H 20 129/77 98 01/15/19 07:37 01/15/19 07:37 01/15/19 08:45 01/15/19 07:37 01/15/19 07:37 General appearance: Present: no acute distress - EENT Eyes: Present: PERRL, EOM intact ENT: hearing intact, clear oral mucosa - Neck Neck: Present: supple, normal ROM - Respiratory Respiratory effort: normal Respiratory: bilateral: CTA - Cardiovascular Rhythm: regular Heart Sounds: Present: S1 & S2. Absent: systolic murmur, diastolic murmur - Extremities Extremities: no ischemia, pulses intact, pulses symmetrical, No edema, normal temperature, normal color, Full ROM Peripheral Pulses: within normal limits - Abdominal General gastrointestinal: soft, non-tender, non-distended, normal bowel sounds - Integumentary Integumentary: Present: warm (dressing to the perianal ) - Psychiatric Psychiatric: appropriate mood/affect, intact judgment & insight, memory intact, cooperative - Neurologic Neurologic: CNII-XII intact, moves all extremities - Allied Health Allied health notes reviewed: nursing Results - Labs CBC & Chem 7: 01/14/19 12:48 01/14/19 12:48 Labs: Laboratory Last Values WBC 12.6 K/mm3 (4.5-11.0) H 01/14/19 12:48 RBC 4.46 M/mm3 (3.65-5.03) 01/14/19 12:48 Hgb 14.0 gm/dl (11.8-15.2) 01/14/19 12:48 Hct 41.2 % (35.5-45.6) 01/14/19 12:48 MCV 92 fl (84-94) 01/14/19 12:48 MCH 31 pg (28-32) 01/14/19 12:48 MCHC 34 % (32-34) 01/14/19 12:48 RDW 14.0 % (13.2-15.2) 01/14/19 12:48 Plt Count 308 K/mm3 (140-440) 01/14/19 12:48 Lymph % (Auto) 13.8 % (13.4-35.0) 01/14/19 12:48 [place] % (Auto) 7.6 % (0.0-7.3) H 01/14/19 12:48 Eos % (Auto) 0.8 % (0.0-4.3) 01/14/19 12:48 Baso % (Auto) 0.4 % (0.0-1.8) 01/14/19 12:48 Lymph # 1.7 K/mm3 (1.2-5.4) 01/14/19 12:48 [place] # 1.0 K/mm3 (0.0-0.8) H 01/14/19 12:48 Eos # 0.1 K/mm3 (0.0-0.4) 01/14/19 12:48 Baso # 0.1 K/mm3 (0.0-0.1) 01/14/19 12:48 Seg Neutrophils % 77.4 % (40.0-70.0) H 01/14/19 12:48 Seg Neutrophils # 9.8 K/mm3 (1.8-7.7) H 01/14/19 12:48 PT 15.4 Sec. (12.2-14.9) H 01/14/19 12:48 INR 1.25 (0.87-1.13) H 01/14/19 12:48 APTT 33.0 Sec. (24.2-36.6) 01/14/19 12:48 Sodium 136 mmol/L (137-145) L 01/14/19 12:48 Potassium 3.4 mmol/L (3.6-5.0) L 01/14/19 12:48 Chloride 95.6 mmol/L (98-107) L 01/14/19 12:48 Carbon Dioxide 27 mmol/L (22-30) 01/14/19 12:48 Anion Gap 17 mmol/L 01/14/19 12:48 BUN 7 mg/dL (9-20) L 01/14/19 12:48 Creatinine 0.8 mg/dL (0.8-1.5) 01/14/19 12:48 Estimated GFR > 60 ml/min 01/14/19 12:48 BUN/Creatinine Ratio 9 % 01/14/19 12:48 Glucose 111 mg/dL (75-100) H 01/14/19 12:48 Calcium 9.3 mg/dL (8.4-10.2) 01/14/19 12:48 Total Bilirubin 0.50 mg/dL (0.1-1.2) 01/14/19 12:48 AST 21 units/L (5-40) 01/14/19 12:48 ALT 18 units/L (7-56) 01/14/19 12:48 Alkaline Phosphatase 94 units/L (35-129) 01/14/19 12:48 Total Protein 8.7 g/dL (6.3-8.2) H 01/14/19 12:48 Albumin 4.2 g/dL (3.9-5) 01/14/19 12:48 Albumin/Globulin Ratio 0.9 % 01/14/19 12:48 Lipase 9 units/L (13-60) L 01/14/19 12:48 Urine Color Yellow (Yellow) 01/14/19 16:52 Urine Turbidity Clear (Clear) 01/14/19 16:52 Urine pH 5.0 (5.0-7.0) 01/14/19 16:52 Ur Specific [place] > 1.059 (1.003-1.030) H 01/14/19 16:52 Urine Protein <15 mg/dl mg/dL (Negative) 01/14/19 16:52 Urine Glucose (UA) Neg mg/dL (Negative) 01/14/19 16:52 Urine Ketones Neg mg/dL (Negative) 01/14/19 16:52 Urine Blood Neg (Negative) 01/14/19 16:52 Urine Nitrite Neg (Negative) 01/14/19 16:52 Urine Bilirubin Neg (Negative) 01/14/19 16:52 Urine Urobilinogen 2.0 mg/dL (<2.0) 01/14/19 16:52 Ur Leukocyte Esterase Neg (Negative) 01/14/19 16:52 Urine WBC (Auto) 1.0 /HPF (0.0-6.0) 01/14/19 16:52 Urine RBC (Auto) 2.0 /HPF (0.0-6.0) 01/14/19 16:52 Urine Mucus 1+ /HPF 01/14/19 16:52 Active Medications - Current Medications Current Medications: Generic Name Dose Route Start Last Admin Trade Name Freq PRN Reason Stop Dose Admin Acetaminophen 650 mg 01/14/19 17:31 Tylenol PO Q4H PRN Pain MILD(1-3)/Fever >100.5/[place] Acetaminophen 975 mg 01/15/19 08:00 01/15/19 08:45 Tylenol PO 01/15/19 13:00 975 mg ONCE NR Administration Acetaminophen/Hydrocodone [place] 1 each 01/14/19 20:18 01/14/19 20:19 [place] 5/325 PO 1 each Q4H PRN Administration Pain, Moderate (4-6) Albuterol 2.5 mg 01/14/19 17:31 Proventil IH Q4H PRN Shortness Of Breath Celecoxib 400 mg 01/15/19 08:00 Celebrex PO 01/15/19 13:00 PREOP NR Fentanyl 50 mcg 01/15/19 07:53 Sublimaze IV 01/15/19 22:00 Q5MIN PRN Pain , Severe (7-10) Gabapentin 600 mg 01/15/19 08:00 Neurontin PO 01/15/19 13:00 PREOP NR Hydromorphone HCl 0.5 mg 01/15/19 07:53 Dilaudid IV 01/15/19 22:00 Q10MIN PRN Pain , Severe (7-10) Vancomycin HCl 1,500 mg/ 530 mls @ 333.333 mls/hr 01/15/19 08:00 01/15/19 06:59 Sodium Chloride IV 333.333 mls/hr Q12H NARENDRA Administration Lactated Ringer's 1,000 mls @ 125 mls/hr 01/15/19 08:00 Lactated Ringers IV DIRECT NARENDRA Midazolam HCl 2 mg 01/15/19 08:00 Versed IV 01/15/19 23:59 PREOP NR Morphine Sulfate 2 mg 01/14/19 18:08 01/15/19 03:58 Morphine IV 2 mg Q4H PRN Administration Pain, Moderate (4-6) Morphine Sulfate 2 mg 01/15/19 08:00 Morphine IV 01/15/19 10:00 ONCE NR Ondansetron HCl 4 mg 01/14/19 17:31 01/15/19 01:40 Zofran IV 4 mg Q8H PRN Administration Nausea And Vomiting Ondansetron HCl 4 mg 01/15/19 07:53 Zofran IV 01/15/19 13:00 ONCE PRN Nausea And Vomiting Oxycodone/Acetaminophen 1 tab 01/14/19 18:08 Percocet 5/325 PO Q6H PRN Pain, Moderate (4-6) Pneumococcal Polyvalent Vaccine 0.5 ml 01/15/19 12:00 Pneumovax 23 IM 01/15/19 12:01 .ONCE ONE Sodium Chloride 10 ml 01/14/19 22:00 01/14/19 22:54 Sodium Chloride Flush Syringe 10 Ml IV Not Given BID NARENDRA Sodium Chloride 10 ml 01/14/19 17:31 Sodium Chloride Flush Syringe 10 Ml IV PRN PRN LINE FLUSH
[2019-01-15] MEDS ORDERED: GLYCOPYRROLATE 0.4 MG/2 ML INJ ONE (09:50)
[2019-01-15] MEDS ORDERED: NEOSTIGMINE 10MG/10 ML INJ MDV ONE (09:50)
[2019-01-15] MEDS ORDERED: HYDROGEN PEROXIDE 118 ML SOLUTION IRRIGATION ONE (09:56)
[2019-01-15] MEDS ORDERED: SODIUM CHLORIDE 0.9% IRRIG SOLN 2000 ML IR ONE (09:56)
--- NOTE | 2019-01-15 09:57 | Operative Report ---
PREOPERATIVE DIAGNOSIS: Left perirectal abscess. POSTOPERATIVE DIAGNOSIS: Left perirectal abscess. PROCEDURE: I and D of left perirectal abscess. SURGEON: Obdulio Appiah M.D. ANESTHESIA: General. ESTIMATED BLOOD LOSS: Minimal. DRAINS: None. COMPLICATIONS: None. PROCEDURE IN DETAIL: The patient was taken to the operating room and placed in jackknife position, prepped and draped in usual sterile fashion. The palpable indurated draining nodule was easily identifiable in the medial left buttock region. An 11 blade was used to incise the abscess. A fair amount of bloody purulent fluid was noted. Aerobic and anaerobic cultures were taken. A hemostat as well as digital manipulation was used to break up all the micro loculations. The abscess cavity was then irrigated copiously with a 50% Betadine peroxide solution. Subsequently, a saline was used. The area was then inspected for bleeding and noted to be dry. The abscess cavity was packed with quarter inch iodoform gauze. A 0.5% Marcaine was infiltrated over the edges for postoperative pain relief. Fluffs and pressure dressings applied. The patient tolerated the procedure well and left the OR in stable condition. JOB# [id number] MADELINE/FELIPE
[2019-01-15] MEDS ORDERED: ONDANSETRON 4 MG/2 ML INJ ONE (10:00)
[2019-01-15] MEDS ORDERED: PNEUMOCOCCAL 23 Valent 0.5 ML VIAL IM ONE (12:00)
[2019-01-15] MEDS ORDERED: FLU VACC QUAD 2019-20 (3 YR UP)/PF 60 MCG/0.5 ML SYRINGE IM ONE (12:00)
--- NOTE | 2019-01-15 13:03 | Post Anesthesia Evaluation ---
- Post Anesthesia Evaluation Patient Participated: Yes Airway Patent: Yes Stable Respiratory Function: Yes Nausea/Vomiting: No Temp > 96.8F: Yes Pain Manageable: Yes Adequeate Hydration: Yes Anesthesia Complications: No Block Receding Appropriately: Not Applicable Patient on Ventilator: No
--- NOTE | 2019-01-15 13:10 | Progress Note ---
Assessment and Plan Pt awake and alert no compl s/p I&D of mariana-rectal abscess stable from gen surg perspective. August d/c from surg perspective Pt to start sitz bath tid in am to d/c packing in am with first sitz bath d/c on [place] I-2 po q 4 q prn surfak stool softners over the counter q am x 3 Keflex 500 mg po qid rto this Fri Objective Vital Signs - 12hr 01/15/19 01/15/19 01/15/19 04:24 07:37 07:57 Temperature 99.5 F 99.1 F 98.6 F Pulse Rate 96 H 100 H 78 Respiratory 20 18 16 Rate Blood Pressure 132/73 129/77 142/91 O2 Sat by Pulse 99 98 98 Oximetry 01/15/19 01/15/19 01/15/19 08:10 08:45 08:50 Temperature 98.6 F Pulse Rate 78 Respiratory 16 20 20 Rate Blood Pressure 142/91 O2 Sat by Pulse 98 Oximetry 01/15/19 01/15/19 01/15/19 09:35 10:01 10:06 Temperature 98.4 F Pulse Rate 115 H 105 H Respiratory 20 115 H 17 Rate Blood Pressure 110/51 128/69 O2 Sat by Pulse 100 100 Oximetry 01/15/19 01/15/19 01/15/19 10:11 10:16 10:31 Temperature 99.6 F Pulse Rate 98 H 80 86 Respiratory 14 14 18 Rate Blood Pressure 122/68 128/64 121/59 O2 Sat by Pulse 100 100 100 Oximetry 01/15/19 10:44 Temperature 98.1 F Pulse Rate 95 H Respiratory 18 Rate Blood Pressure 124/80 O2 Sat by Pulse 97 Oximetry - Labs 01/14/19 12:48 01/14/19 12:48 Diabetes panel 01/14/19 Range/Units 12:48 Sodium 136 L (137-145) mmol/L Potassium 3.4 L (3.6-5.0) mmol/L Chloride 95.6 L (98-107) mmol/L Carbon Dioxide 27 (22-30) mmol/L BUN 7 L (9-20) mg/dL Creatinine 0.8 (0.8-1.5) mg/dL Glucose 111 H (75-100) mg/dL Calcium 9.3 (8.4-10.2) mg/dL AST 21 (5-40) units/L ALT 18 (7-56) units/L Alkaline Phosphatase 94 (35-129) units/L Total Protein 8.7 H (6.3-8.2) g/dL Albumin 4.2 (3.9-5) g/dL Calcium panel 01/14/19 Range/Units 12:48 Calcium 9.3 (8.4-10.2) mg/dL Albumin 4.2 (3.9-5) g/dL Pituitary panel 01/14/19 Range/Units 12:48 Sodium 136 L (137-145) mmol/L Potassium 3.4 L (3.6-5.0) mmol/L Chloride 95.6 L (98-107) mmol/L Carbon Dioxide 27 (22-30) mmol/L BUN 7 L (9-20) mg/dL Creatinine 0.8 (0.8-1.5) mg/dL Glucose 111 H (75-100) mg/dL Calcium 9.3 (8.4-10.2) mg/dL Adrenal panel 01/14/19 Range/Units 12:48 Sodium 136 L (137-145) mmol/L Potassium 3.4 L (3.6-5.0) mmol/L Chloride 95.6 L (98-107) mmol/L Carbon Dioxide 27 (22-30) mmol/L BUN 7 L (9-20) mg/dL Creatinine 0.8 (0.8-1.5) mg/dL Glucose 111 H (75-100) mg/dL Calcium 9.3 (8.4-10.2) mg/dL Total Bilirubin 0.50 (0.1-1.2) mg/dL AST 21 (5-40) units/L ALT 18 (7-56) units/L Alkaline Phosphatase 94 (35-129) units/L Total Protein 8.7 H (6.3-8.2) g/dL Albumin 4.2 (3.9-5) g/dL
[2019-01-15] MEDS ORDERED: MORPHINE 2 MG/1 ML INJ IV STA (18:17)
[2019-01-15] MEDS ORDERED: ASPIRIN 81 MG TAB CHEW PO STA (18:18)
[2019-01-15 19:37] LABS: Creatine Kinase MB < 1.0 ng/mL (0.0-4.0)
--- NOTE | 2019-01-16 00:27 | Consultation ---
REASON FOR CONSULTATION: Perirectal abscess. HISTORY OF PRESENT ILLNESS: The patient is a pleasant 28-year-old gentleman who has been complaining of perianal pain for approximately 48 hours. PAST MEDICAL HISTORY: Negative. PAST SURGICAL HISTORY: Negative. ALLERGIES: No known allergies. MEDICATIONS: No medications. FAMILY HISTORY: Negative. SOCIAL HISTORY: Denies any alcohol or cigarette smoking. PHYSICAL EXAMINATION: GENERAL: At this time reveals the patient to be awake, alert, cooperative, in moderate discomfort, but no acute distress. VITAL SIGNS: Show him to be running a low-grade temperature of 99.5, blood pressure 129/77, pulse of 96, respirations of 18. Examination of the perirectal area does indeed reveal an indurated, tender region near the pudendal medial left buttock region. LABORATORY DATA: Lab work at present includes a CBC, which shows a white count of 12.6, H and H of 14 and 41. Electrolytes essentially within normal limits. CT scan was also performed, which is consistent with a 3 cm left perirectal abscess with moderate amount of adjacent cellulitis. IMPRESSION: At this time is that of a healthy 28-year-old male with left perirectal abscess. Plan is to proceed with I and D of left perirectal abscess. JOB# [id number] MADELINE/FELIPE
[2019-01-16 05:55] LABS: Hematocrit 35.2 % (35.5-45.6); Hemoglobin 12.2 gm/dl (11.8-15.2); Mean Corpuscular HGB Conc 35 % (32-34); Mean Corpuscular Volume 91 fl (84-94); Platelet Count 280 K/mm3 (140-440); Red Blood Count 3.86 M/mm3 (3.65-5.03); Red Cell Distribution Width 13.2 % (13.2-15.2)
[2019-01-16] MEDS: LACTATED RINGERS 1,000 ML IV SCH (05:55)
[2019-01-16 06:09] LABS: BUN/Creatinine Ratio 6; Blood Urea Nitrogen 5 mg/dL (9-20); Calcium 8.6 mg/dL (8.4-10.2); Hemolysis Index 1
--- NOTE | 2019-01-16 07:19 | Progress Note ---
Assessment and Plan Pt status quo. without compl surgically stable may d/c from surg perspective d/c instructions on yest progress notes Objective Vital Signs - 12hr 01/15/19 01/16/19 23:29 04:17 Temperature 98.0 F 97.5 F L Pulse Rate 86 59 L Respiratory 19 18 Rate Blood Pressure 124/78 106/63 O2 Sat by Pulse 99 98 Oximetry - Labs 01/16/19 05:24 01/16/19 05:24 Diabetes panel 01/16/19 Range/Units 05:24 Sodium 138 (137-145) mmol/L Potassium 3.6 (3.6-5.0) mmol/L Chloride 101.8 (98-107) mmol/L Carbon Dioxide 28 (22-30) mmol/L BUN 5 L (9-20) mg/dL Creatinine 0.8 (0.8-1.5) mg/dL Glucose 95 (75-100) mg/dL Calcium 8.6 (8.4-10.2) mg/dL Calcium panel 01/16/19 Range/Units 05:24 Calcium 8.6 (8.4-10.2) mg/dL Pituitary panel 01/16/19 Range/Units 05:24 Sodium 138 (137-145) mmol/L Potassium 3.6 (3.6-5.0) mmol/L Chloride 101.8 (98-107) mmol/L Carbon Dioxide 28 (22-30) mmol/L BUN 5 L (9-20) mg/dL Creatinine 0.8 (0.8-1.5) mg/dL Glucose 95 (75-100) mg/dL Calcium 8.6 (8.4-10.2) mg/dL Adrenal panel 01/16/19 Range/Units 05:24 Sodium 138 (137-145) mmol/L Potassium 3.6 (3.6-5.0) mmol/L Chloride 101.8 (98-107) mmol/L Carbon Dioxide 28 (22-30) mmol/L BUN 5 L (9-20) mg/dL Creatinine 0.8 (0.8-1.5) mg/dL Glucose 95 (75-100) mg/dL Calcium 8.6 (8.4-10.2) mg/dL
[2019-01-16] MEDS: VANCOMYCIN 1,500 MG in SODIUM CHLORIDE 0.9% 500 ML 500 ML IV SCH ×2 (09:34→09:39)
[2019-01-16] MEDS: HYDROcodone/ACETAMINOPHEN 5-325 MG TAB PO PRN (09:43)
--- NOTE | 2019-01-16 10:02 | Discharge Summary ---
Providers - Providers Date of Admission: 01/14/19 17:32 Date of discharge: 01/16/19 Attending physician: IAN RICHARDSON 01/14/19 17:32 Consult to Physician [CONS] Routine Comment: Consulting Provider: EDUAR URBINA Physician Instructions: Reason For Exam: Left Perirectal abscess Primary care physician: DIGITAL AD TRAFFICKER Hospitalization Reason for admission: Perirectal abcess Condition: Stable Pertinent studies: CT abdomen and pelvis was normal Procedures: I & D of left pararectal abcess Hospital course: 28 YO Male with Nicotine Dependence, Hemorrhoids presents to ED for evaluation. Pt states that he has experienced pain and tenderness to his left buttock over the past 2 days with progressively worsening symptoms over the same time frame. Pt states that the pain is 4/10, constant, localized to his left buttock, worsened with sitting. Pt acknowledges redness and tenderness to the same area. Pt transported to [facility] via private vehicle. Pt seen and evaluated in ED and found to have left buttock cellulitis complicated by abscess. Surgery team consulted in ED. Pt initiated on IV antibiotic therapy. Pt denies fever, chills, CP, Palpitations, NVD, HIV risk factors, trauma, or recent ill contacts. CT of abdomen and pelvis was unremarkable. surgical consult was obtained. I AND D of left perirectla abcess was done. Pt felt better. He is being discharged today to f/u with PCP in 5 days and Surgeon 3 days Disposition: DC-01 TO HOME OR SELFCARE Time spent for discharge: 35 mins - Discharge Diagnoses (1) Nicotine dependence Status: Acute Qualifiers: Nicotine product type: cigarettes Substance use status: in withdrawal Qualified Code(s): F17.213 - Nicotine dependence, cigarettes, with withdrawal (2) Perirectal abscess Status: Acute (3) Perirectal cellulitis Status: Acute Core Measure Documentation - Palliative Care Palliative Care/ Comfort Measures: Not Applicable - Core Measures Any of the following diagnoses?: none Exam - Constitutional Vitals: Temp Pulse Resp BP Pulse Ox 98.6 F 78 18 117/77 100 01/16/19 06:53 01/16/19 06:53 01/16/19 06:53 01/16/19 06:53 01/16/19 06:53 General appearance: Present: no acute distress, well-nourished - EENT Eyes: Present: PERRL ENT: hearing intact, clear oral mucosa - Neck Neck: Present: supple, normal ROM - Respiratory Respiratory effort: normal Respiratory: bilateral: CTA - Cardiovascular Heart Sounds: Present: S1 & S2. Absent: rub, click - Extremities Extremities: pulses symmetrical, No edema Peripheral Pulses: within normal limits - Abdominal General gastrointestinal: Present: soft, non-tender, non-distended, normal bowel sounds Male genitourinary: Present: normal - Rectal Rectal Exam: other (left perirectal abcess) - Integumentary Integumentary: Present: clear, warm, dry - Musculoskeletal Musculoskeletal: gait normal, strength equal bilaterally - Psychiatric Psychiatric: appropriate mood/affect, intact judgment & insight - Neurologic Neurologic: CNII-XII intact, moves all extremities Plan Weight Bearing Status: Weight Bear as Tolerated Diet: regular Durable Medical Equipment Needed Upon Discharge: other (sitz bath) Follow up with: PRIMARY CAREMD [Primary Care Provider] - 3-5 Days EDUAR URBINA MD [Staff Physician] - 3 Days Prescriptions: levoFLOXacin [Levaquin] 750 mg PO QDAY #5 tablet oxyCODONE /ACETAMINOPHEN [Percocet 5/325 mg] 1 tab PO Q8H PRN #12 tablet PRN Reason: Pain, Moderate (4-6)
[2019-01-16 11:52] VITALS: BP 142/93
== END 2019-01-16 16:00 | disposition home or self-care (01) | DRG 345 ==
LOC: ED 11:40 → 3B-SURG 17:32
PROVIDERS: ADMIT Internal Medicine; ATTEND Family Medicine
PROC: 0D9P0ZZ Drainage of Rectum, Open Approach (ICD-10-PCS; principal; 2019-01-15)
PROC: 3E0234Z Introduction of Serum, Toxoid and Vaccine into Muscle, Percutaneous Approach (ICD-10-PCS; 2019-01-15)
DX: K61.1 Rectal abscess (principal); L02.31 Cutaneous abscess of buttock; L03.317 Cellulitis of buttock; F17.213 Nicotine dependence, cigarettes, with withdrawal; F12.90 Cannabis use, unspecified, uncomplicated; Z79.899 Other long term (current) drug therapy; Z71.6 Tobacco abuse counseling; Z23 Encounter for immunization
CPT/HCPCS: 36415; 74177; 80048; 80053; 81001; 82140; 82270; 82550; 82553; 83690; 84484; 85025; 85027; 85610; 85730; 87040; 87075; 87076; 87116; 87186; 90686; 90732; 93005; 93010; 96365; 96375; G0378; A4217; J0330; J1170; J2250; J2270; J2405; J2543; J2704; J2710; J3370; J7030; J7040; J7050; J7120; Q9967; Q9968